=== PATIENT | female | born 1980 ===

== ENCOUNTER 2021-03-13 08:30 | Outpatient (CLI) | payer OTHER | END 2021-03-13 08:45 | disposition home or self-care (01) | LOC: PPH VACUNA 08:30 | PROVIDERS: ATTEND Emergency Medicine Pediatric Emergency Medicine | DX: Z23 Encounter for immunization (principal) ==

== ENCOUNTER 2022-02-15 13:52 | Outpatient (CLI) | payer OTHER | END 2022-02-15 14:02 | disposition home or self-care (01) | LOC: PPH VACUNA 13:52 | PROVIDERS: ATTEND Emergency Medicine Pediatric Emergency Medicine | DX: Z23 Encounter for immunization (principal) ==